=== PATIENT | male | born 1975 | race Caucasian/White ===

== ENCOUNTER 2018-11-27 11:43 | Emergency (ER) | payer MEDICAID ==
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
[2018-11-27] MEDS ORDERED: LORazepam 1 MG TAB PO ONE (12:05)
[2018-11-27 12:31] LABS: PLATELET COUNT, AUTOMATED 204 K/uL (150-450)
--- NOTE | 2018-11-27 13:09 | RADIOLOGY IMAGING REPORT ---
FACILITY: [facility] PATIENT NAME: Pascual Brewster : 1975 MR: [id number] V: [id number] EXAM DATE: ORDERING PHYSICIAN: JAYANT POST TECHNOLOGIST: [place] [facility] [place] Patient: Pascual Brewster : 1975 Visit/Account:[id number] Date of Sevice: 11/27/2018 CHEST PA LAT COMPARISON: None. HISTORY: chest tightness FINDINGS: CARDIAC/VASC: No cardiac silhouette abnormality or cardiomegaly. Unremarkable pulmonary vasculatu re. MEDIASTINUM: No visible mass or adenopathy. LUNGS/PLEURA: No pneumothorax. Borderline lung volumes which could be due to mild air trapping or g ood inspiratory effort. Lungs are considered to be clear. No significant parenchymal opacities. No effusion or pleural thickening. BONES: No fracture or visible bony lesion. OTHER:Negative. IMPRESSION: Borderline lung volumes which could be due to mild diffuse air trapping or a good inspiratory effort. No focal airspace disease in the chest. Report Dictated By: Jamil Hummel at 11/27/2018 1:03 PM Report E-Signed By: Jamil Hummel at 11/27/2018 1:05 PM [id number]
[2018-11-27 14:03] VITALS: BP 143/101
== END 2018-11-27 15:42 ==
LOC: ER 12:00
DX: F41.9 Anxiety disorder, unspecified (principal); F22 Delusional disorders; F15.10 Other stimulant abuse, uncomplicated; F12.10 Cannabis abuse, uncomplicated; D72.829 Elevated white blood cell count, unspecified
CPT/HCPCS: 36415; 71046; 80305; 81001; 83735; 84443; 84484; 85025; 99285; G0480; 80320; 80329; 82040; 82247; 82310; 82374; 82435; 82565; 82947; 84075; 84132; 84155; 84295; 84450; 84460; 84520

== ENCOUNTER 2018-11-27 14:15 | Inpatient (IN) | payer MEDICAID ==
[~2018-11-27] VITALS: Ht 180.3 cm; Wt 74.8 kg
[2018-11-27] MEDS ORDERED: OLANZapine 10 MG VIAL IM ONLY PRN (15:10)
[2018-11-27] MEDS ORDERED: OLANZapine 5 MG TAB PO PRN (15:10)
[2018-11-27] MEDS ORDERED: ACETAMINOPHEN 325 MG TAB PO PRN (15:10)
[2018-11-27] MEDS ORDERED: MAG HYD/AL HYD/SIMETH 30ML UDC PO PRN (15:10)
[2018-11-27] MEDS ORDERED: hydrOXYzine PAMOATE 25 MG CAP PO PRN (15:15)
[2018-11-27] MEDS ORDERED: NICOTINE INH SYSTEM 10 MG/INH INH PRN (16:10)
[2018-11-27] MEDS ORDERED: NICOTINE CARTRIDGE 1 EA PO PRN (16:10)
[2018-11-27] MEDS ORDERED: IBUPROFEN 600 MG TAB PO PRN (20:35)
[2018-11-27] MEDS ORDERED: QUEtiapine FUM 100 MG TAB PO ONE (20:35)
[2018-11-28 05:50] VITALS: BP 112/82
--- NOTE | 2018-11-28 11:17 | EKG ---
[place] [facility] [place] NAME: WING CARL : [id number] MR: [id number] V: [id number] EXAM DATE: ORDERING PHYSICIAN: AISHA MARMOLEJO TECHNOLOGIST: BRITTANY Test Reason : HEART DISEASE HX Blood Pressure : / mmHG Vent. Rate : 102 BPM Atrial Rate : 102 BPM P-R Int : 124 ms QRS Dur : 082 ms QT Int : 348 ms P-R-T Axes : 076 074 054 degrees QTc Int : 453 ms Sinus tachycardia Otherwise normal ECG No previous ECGs available Confirmed by Wing Lozano ([id number]) on 11/28/2018 9:50:05 PM Referred By: FRANCIE Confirmed By:Wing Wilburn
[2018-11-28 12:45] VITALS: BP 122/66
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
[2018-11-28] MEDS: OLANZapine 5 MG TAB PO SCH (20:18)
[2018-11-28 21:00] VITALS: BP 110/74
[2018-11-29 06:14] VITALS: BP 113/90
[2018-11-29] MEDS: buPROPion XL 150 MG TABCR PO SCH (11:12)
--- NOTE | 2018-11-29 13:48 | BHS Progress Note ---
[facility] - Subjective Progress Notes Subjective Pt seen in treatment team meeting with his friend from [facility] on speaker phone. Pt is doing OK, still having complex paranoid delusions, denies AH. Reporting some mild depression and says he felt better when he was taking wellbutrin. This is reasonable for him since he also has ADHD sx's, as well as it may help with cravings for cigarettes and drugs-- so will restart it at XL 150 mg q AM. His friend indicates that he bacame acutely paranoid last , so likely substance-related. Pt tolerating zyprexa fairly well-- he complained that it was harder to wake up this am, but this should get better as he adjusts to the medication. Suicidal Ideation: None Homicidal Ideation: None [facility] - Objective Physical Exam Vital Signs Vital Signs 11/28/18 11/29/18 12:45 06:14 Temp 99.3 Pulse 77 Resp 18 B/P (MAP) 113/90 (98) Pulse Ox 97 O2 Delivery Room Air Muscle Strength and Tone: WNL Gait and Station: Steady [facility] Medications Reviewed: Side Effects, Benefits of Medication, Risks Allergies Reviewed: Yes Mental Status Exam General Appearance: Casual, Cooperative, Polite, Good Interaction, Psychomotor Agitation (mild) Speech: Clear, Normal Rate, Normal Volume Mood: Dysthmic/Depressed Affect: Sad, Anxious Thought Process: Organized, Logical, Goal Directed Thought Content: No Suicidal Ideation, No Homicidal Ideation; Delusions (co mplex regarding Bikers, Cartel members, White Aryans... all stalking him, poss to kill him); No Auditory Halllucinations, No Visual Hallucinations, No Thought Broadcasting; Ideas of Reference; No Obsessions, No Compulsions, No Other Sensorium: Clear Cognition: Alert & Oriented-Person, Alert & Oriented-Place, Alert & Oriented- Time, [id number]-[id number] Memory: Immediate, Recent, Remote Intelligence: Average Insight Judgment: Poor [facility] Assessment and Plan [id number] Encounter Date: November 29, 2018 [id number] Encounter Time: 09:30 [facility] Plan: Necessary Precautions, Individual/Group Therapy, Admin/Titrate Meds Tobacco Medications: Started Multpiple Antipsychotics Used: No Problems: (1) Unspecified psychosis (2) Amphetamine use disorder, moderate, in controlled environment (3) Opiate dependence AISHA MARMOLEJO MD November 29, 2018 13:48
[2018-11-29 14:00] VITALS: BP 134/78
[2018-11-29] MEDS: OLANZapine 5 MG TAB PO SCH (20:16)
[2018-11-29 20:17] VITALS: BP 103/86
[2018-11-30 05:52] VITALS: BP 128/90
[2018-11-30] MEDS: buPROPion XL 150 MG TABCR PO SCH (08:06)
[2018-11-30 10:42] VITALS: BP 124/90
--- NOTE | 2018-11-30 10:51 | BHS Progress Note ---
[facility] - Subjective Progress Notes Subjective Pt seen in treatment team. He continues to feel paranoid about people following him, and insists that this is real, not delusional. We worked on reality testing-- that likelihood of this is low, that no one could actually know where he is right now... He requests not to take zyprexa any more-- he wants to be on as little medication as possible and does not like how it makes him feel. We will continue his wellbutrin for depression. He is attending all groups and unit activities cooperatively. We discussed discharge planning for tomorrow, we can get him a voucher for a bus to [place] and for his medication. He wants to stay in [facility] tomorrow night and then continue his trip to [place], [place]. Suicidal Ideation: None Homicidal Ideation: None [facility] - Objective Physical Exam Vital Signs Vital Signs 11/30/18 05:52 Temp 100.1 Pulse 68 Resp 14 B/P (MAP) 128/90 (103) Pulse Ox 97 O2 Delivery Room Air Muscle Strength and Tone: WNL Gait and Station: Steady [facility] Medications Reviewed: Side Effects, Benefits of Medication, Risks Allergies Reviewed: Yes Mental Status Exam General Appearance: Casual, Cooperative, Polite, Good Interaction, Psychomotor Agitation (mild) Speech: Clear, Normal Rate, Normal Volume Mood: Dysthmic/Depressed Affect: Sad, Anxious Thought Process: Organized, Logical, Goal Directed Thought Content: No Suicidal Ideation, No Homicidal Ideation; Delusions (complex regarding Bikers, Cartel members, White Aryans... all stalking him, poss to kill him); No Auditory Halllucinations, No Visual Hallucinations, No Thought Broadcasting; Ideas of Reference; No Obsessions, No Compulsions, No Other Sensorium: Clear Cognition: Alert & Oriented-Person, Alert & Oriented-Place, Alert & Oriented- Time, [id number]-[id number] Memory: Immediate, Recent, Remote Intelligence: Average Insight Judgment: Poor [facility] Assessment and Plan [id number] Encounter Date: November 30, 2018 [id number] Encounter Time: 09:00 [facility] Plan: Necessary Precautions, Individual/Group Therapy, Admin/Titrate Meds Tobacco Medications: Started Multpiple Antipsychotics Used: No Problems: (1) Unspecified psychosis (2) Amphetamine use disorder, moderate, in controlled environment (3) Opiate dependence MARMOLEJO,AISHA MD November 30, 2018 10:51
[2018-11-30] MEDS: OLANZapine 5 MG TAB PO SCH (20:10)
[2018-12-01 05:26] VITALS: BP 123/89
[2018-12-01] MEDS: buPROPion XL 150 MG TABCR PO SCH (08:18)
[2018-12-01] MEDS ORDERED: BUPR-472 PO (11:16)
[2018-12-01 12:20] VITALS: BP 116/82
[2018-12-01] MEDS ORDERED: NIC10R INH (12:44)
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
== END 2018-12-01 13:40 | disposition home or self-care (01) | DRG 885 ==
LOC: BHS 14:15
PROVIDERS: ADMIT Psychiatry & Neurology Psychiatry; ATTEND Psychiatry & Neurology Psychiatry
DX: F29 Unspecified psychosis not due to a substance or known physiological condition (principal); F15.20 Other stimulant dependence, uncomplicated; F11.20 Opioid dependence, uncomplicated; Z81.8 Family history of other mental and behavioral disorders; Z81.1 Family history of alcohol abuse and dependence
CPT/HCPCS: 93005